=== PATIENT | male | born 2005 | race Caucasian/White ===

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

== ENCOUNTER → 2023-05-25 10:27 | Outpatient (CLI) | payer BC, SELFPAY ==
[2023-05-25 13:26] LABS: 3Hr Motility Quality Rapid Progression (Mod-Rapid); 3Hr Sperm Motility 80 % (50-60); Motility Quality Rapid Progression (Mod-Rapid); PH,Semen 8.5 (7.3-8.3); Semen Viscosity Normal (Normal); Sperm Count 89 mil/mm3 (20-160); Sperm Morphology N (Normal); Sperm Motility 100 % (50-90); WBCs,Semen Trace
== END ==
PROVIDERS: PCP Nurse Practitioner; Visit Provider Nurse Practitioner Obstetrics & Gynecology
DX: N46.9 Male infertility, unspecified (principal)
CPT/HCPCS: 89320

== ENCOUNTER 2023-08-19 13:20 | Emergency (ER) | payer BC, SELFPAY ==
[2023-08-19 14:20] VITALS: BP 126/66; PULSE 103; RESP 20; TEMP 37.2; O2SAT 99
[2023-08-19 14:35] VITALS: BP 126/66; PULSE 103; RESP 20; TEMP 37.2; O2SAT 99
[2023-08-19 14:38] LABS: UTC Influenza A Antigen Positive (Negative); UTC Influenza B Antigen Negative (Negative)
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
== END 2023-08-19 15:13 | disposition home or self-care (01) ==
PROVIDERS: Emergency Provider Nurse Practitioner; PCP Nurse Practitioner
DX: J10.1 Influenza due to other identified influenza virus with other respiratory manifestations (principal); R50.9 Fever, unspecified; R51.9 Headache, unspecified; R05.9 Cough, unspecified; R07.0 Pain in throat; R53.83 Other fatigue; M79.18 Myalgia, other site; F17.290 Nicotine dependence, other tobacco product, uncomplicated; J45.909 Unspecified asthma, uncomplicated
CPT/HCPCS: 87804; 99204; 99212; G0463

== ENCOUNTER 2023-12-24 12:30 | Emergency (ER) | payer BC, SELFPAY ==
[2023-12-24 12:55] VITALS: BMI 21.5
--- NOTE | 2023-12-24 12:56 | XR_ITS ---
PROCEDURE INFORMATION: Exam: XR Left Wrist Exam date and time: 12/24/2023 12:50 PM Age: 18 years old Clinical indication: Injury or trauma; Fall; Blunt trauma (contusions or hematomas); Hand; Right; Additional info: Fell , pain in 1st digit TECHNIQUE: Imaging protocol: Radiologic exam of the left wrist. Views: 3 views of the left wrist provided. COMPARISON: No relevant prior studies available. FINDINGS: Bones/joints: No evidence of acute fracture or malalignment. Carpal arcs are well-maintained. Soft tissues: Unremarkable. IMPRESSION: No evidence of acute osseous abnormality in the left wrist. PROCEDURE INFORMATION: Exam: XR Left Hand Exam date and time: 12/24/2023 12:50 PM Age: 18 years old Clinical indication: Injury or trauma; Fall; Blunt trauma (contusions or hematomas); Hand; Right; Additional info: Fell , pain in 1st digit TECHNIQUE: Imaging protocol: Radiologic exam of the left hand. Views: 3 views of the left hand provided. COMPARISON: No relevant prior studies available. FINDINGS: Bones/joints: No evidence of acute fracture or malalignment. Soft tissues: Unremarkable. IMPRESSION: No evidence of acute osseous abnormality in the left hand.
[2023-12-24 13:20] VITALS: BP 115/71; PULSE 75; RESP 19; TEMP 36.9; O2SAT 99; BMI 26.4
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
[2023-12-24 14:30] VITALS: BP 115/71; PULSE 75; RESP 19; TEMP 36.9; O2SAT 99
== END 2023-12-24 14:37 | disposition home or self-care (01) ==
PROVIDERS: Emergency Provider Nurse Practitioner; PCP Nurse Practitioner
DX: S63.602A Unspecified sprain of left thumb, initial encounter (principal); M79.645 Pain in left finger(s); F17.290 Nicotine dependence, other tobacco product, uncomplicated; W01.10XA Fall on same level from slipping, tripping and stumbling with subsequent striking against unspecified object, initial encounter
CPT/HCPCS: 73130; 99212; 99214; G0463

== ENCOUNTER 2024-12-11 13:51 | Outpatient (CLI) | payer BC, SELFPAY ==
--- NOTE | 2024-12-11 13:53 | US_ITS ---
FINAL REPORT CLINICAL HISTORY: LBP, LUMP, SWELLING FINDINGS: Limited sonographic images of the left back were obtained. There is a subcutaneous hyperechoic focus at the site of the clinical abnormality measuring 2.1 x 1.0 cm favored to represent a lipoma. IMPRESSION: Favor a lipoma. Reviewed, Interpreted and Dictated by Nik Talbert MD Transcribed by Arianna Berry Authenticated and [facility]
== END 2024-12-11 23:59 | disposition home or self-care (01) ==
LOC: RAD 13:51
PROVIDERS: PCP Nurse Practitioner; Visit Provider Nurse Practitioner
DX: R22.2 Localized swelling, mass and lump, trunk (principal)
CPT/HCPCS: 76604

== ENCOUNTER 2025-01-21 09:52 | Outpatient (CLI) | payer BC, SELFPAY ==
--- OUTSIDE RECORDS SUMMARY | 2025-01-21 09:58 | XMS_ITS | Clinical Summary ---
Author Organization Healthcare Address [address] [place] [address] Care Team Providers Care Bench Assembly Inspector Name Role Phone Pcp, No Primary Care Provider Unavailabl e Allergies No known active allergies Medications montelukast (Singulair) 4 MG granulesIndicat ions:Seasonal Allergic Rhinitis Take 4 mg by mouth every night. Active albuterol 0.63 MG/3ML nebulizer solution Take 0.63 mg by nebulization every 6 (six) hours if needed for wheezing. Active Active Problems No known active problems Social History Tobacco Use Types Packs/Day Years Used Date Smoking Tobacco: Some Days Cigarettes Smokeless Tobacco: Never Tobacco Cessation:Ready to Q uit: Not Asked; Counseling Given: Not Answered Alcohol Use Standard Drinks/Week Comments Never 0 (1 standard drink = 0.6 oz pur e alcohol) Sex and Gender Information Value Date Recorded Sex Assigned at Not on file Legal Sex Male 7:32 AM EDT Gender Identity Not on file Sexual Orientation Not on file Last Filed Vital Signs Vital Sign Reading Time Taken Comments Blood Pressure 111/76 04/01/2022 8:16 AM EDT Pulse 70 04/01/2022 8:16 AM EDT Temperature - - Respiratory Rate - - Oxygen Saturation - - Inhaled Oxygen Concentration - - Weight - - Height - - Body Mass Index - - Plan of Treatment Health Maintenance Due Date Last Done Comments Dental Oral Exam 2003 Dental Prophylaxis 2003 Dental X-Ray: Full Mouth 2003 [facility]-Depression Screening 2003 [facility]-HIV Screening 2003 [facility]-Hepatitis C Screening 2003 [facility]-/Child/Adol SDOH Screenings 2003 [facility]-Hepatitis B Vaccines (3 of 3 - 3-dose series) 05/12/2004 03/17/2004, 2003 [facility]-IPV Vaccines (4 of 4 - 4-dose series) 2007 09/03/2004, 2003, 2003 HPV Vaccines (2 - Male 2-dose series) 11/15/2018 05/17/2018 [facility]- SDOH Screenings 2021 [facility]-Adult SDOH Screenings 2021 Dental X-Ray: Bitewings 04/02/2023 04/01/2022 [id number] Vaccine (3 - season) 2024 05/03/2021, 04/12/2021 [facility]-Influenza Vaccine (Season Ended) 2025 05/17/2018, 05/08/2015 [facility]-DTaP,Tdap,and Td Vaccines (7 - Td or Tdap) 05/17/2028 05/17/2018, 03/04/2015, 08/21/2007, Additional history exists [facility]-Zoster Vaccines (1 of 2) 2053 08/31/2007, 09/03/2004 [facility]-Hepatitis A Vaccines Completed 08/31/2007, 08/14 [facility]-Varicella Vaccines Completed 08/31/2007, 2004 [facility]-HIB Vaccines Aged Out No longer e ligible based on patient's age to complete this topic [facility]-Pneumococcal Vaccine: Pediatrics (0 to 5 Years) and At-Risk Patients (6 to 49 Years) Aged Out No longer eligible based on patient's age to complete this topic [facility]-Rotavirus Vaccines Aged Out No lo nger eligible based on patient's age to complete this topic Procedures Procedure Name Priority Date/Time Associated Diagnosis Comments 19 BITEWING - SINGLE RADIOGRAPHIC IMAGE Routine 04/01/2022 7:45 AM EDT Dental caries from Last 3 Months or Most Recently Relevant to Health Maintenance Insurance [employer] Care Teams Bench Assembly Inspector Relationship Specialty Start Date End Date Arlene Holden [address] [place] [address] PCP - General Family Medicine 04/01/22
--- OUTSIDE RECORDS SUMMARY | 2025-01-21 09:58 | XMS_ITS | Data Portability ---
Author Organization [employer] [place] [facility] Address [address] [place] [address] Assessment No assessment recorded. Plan of Treatment Reminders Order Date Submit Date Provider Last Modified By Organization Details Last Modified Time Details Appointments None recorded. Lab HbA1c (hemoglobin A1c), blood 2023 024 [employer] [facility], [address], [place], [address], 4 08:24:53 vitamin D, 25-hydroxy, total, serum 2023 024 [facility], [address], [place], [address], 4 08:24:53 lipid panel, serum 2023 024 [facility], [address], [place], [address], 4 08:24:51 iron + TIBC + ferritin, serum 2023 024 [facility], [address], [place], [address], 4 08:24:50 CMP, serum or plasma 2023 024 [facility] [facility], [address], [place], [address], 4 08:24:51 CBC w/ auto diff 2023 024 [facility], [address], [place], [address], 4 08:24:52 TSH, serum or plasma 2023 024 [facility], [address], [place], [address], 4 08:24:52 rapid strep group A, throat [address], [address] [place] [address], [place], [address], 3 10:33:59 Referral sap 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 Surgeries None recorded. Imaging US, lower back - first available appt 2024 025 [facility] ([facility] [address], [place], [address], 5 16:20:09 Medication Orders albuterol sulfate HFA 90 mcg/actuati on aerosol inhaler 2023 024 [id number], [address] [place], [address], 4 13:53:34 ipratropium 0.5 mg-albutero l 3 mg (2.5 mg base)/3 mL nebulizatio n soln 2023 024 [id number], [address] [place], [address], 4 13:53:38 montelukast 10 mg tablet 2023 024 [facility], [address] [place] [address], [address], 4 15:27:43 albuterol sulfate HFA 90 mcg/actuati on aerosol inhaler 2023 024 [facility], [address] [place] [address], [address], 4 15:27:44 ipratropium 20 mcg-albuter ol 100 mcg/actuati on mist for inhalation 2023 024 [email or web address] [facility], [address] [place] [address], [address], 4 13:53:51 amoxicillin 875 mg tablet 2022 023 [email or web address] 1 [facility], [address] [place] [address], [address], 4 16:54:39 Patient TargetsNo targets recorded. Patient InstructionsNo instructions recorded. 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 for Aller gic rhinitis first available - same day as Kristy Lopez Referring Physician: Rena Monge, Family Medicine, Encounter Date: 03/25/2024 Results Created Date Observation Date Name Description Value Unit Range Abnormal Flag Note LastModifiedBy Organization Detail LastModifiedTime 07/01/20 23 07/01/2023 rapid strep group A, throa t Strep positi ve Not Available [address], [address], 07/01/2023 10:00:11 02/06/20 24 02/07/2024 IRON, TIBC AND AMINATA TIN PANEL iron, total 73 mcg/d L 50-195 normal Not Available [facility] [place] [facility] [address] [facility], [place], [address], 02/07/2024 08:24:50 02/06/20 24 02/07/2024 IRON, TIBC AND AMINATA TIN PANEL iron binding capacity 284 mcg/d L_(ca lc) 250-42 5 normal Not Available [facility] [address] [facility] [place], [address], 02/07/2024 08:24:50 02/06/20 24 02/07/2024 IRON, TIBC AND AMINATA TIN PANEL % saturation 26 %_(ca lc) 20-48 normal Not Available [facility] [place] [facility] [address] [place] [address], [address], 02/07/2024 08:24:50 02/06/20 24 02/07/2024 IRON, TIBC AND AMINATA TIN PANEL ferritin 100 NG/mL 38-380 normal Not Available [facility] [address] [place] [address], [address], 02/07/2024 08:24:50 02/06/20 24 02/07/2024 LIPID PANEL , STAND BALJIT cholesterol, total 107 mg/dL <200 normal Not Available [facility] [place] [facility] [address] [facility] [place], [address], 02/07/2024 08:24:51 02/06/20 24 02/07/2024 LIPID PANEL , STAND BALJIT HDL cholesterol 48 mg/dL > or = 40 normal Not Available [facility] [address] [place] [place], [address], 02/07/2024 08:24:51 02/06/20 24 02/07/2024 LIPID PANEL , STAND BALJIT triglyceride s 54 mg/dL <150 normal Not Available [facility] [address] [facility] [place], [address], 02/07/2024 08:24:51 02/06/20 24 02/07/2024 LIPID PANEL , STAND BALJIT LDL-choleste rol 46 mg/dL _(navin c) normal Refer ence range : <100 Anup able range <100 mg/dL for prima ry preve ntion ; <70 mg/dL for patie nts with CHD or diabe tic patie nts with > or = 2 CHD risk facto rs. LDL-C is now calcu lated using the Jaz n-Hop kins calcu rubycruz n, which is a valid ated novel metho d provi ding jamel r accur acy than the Fried chong equat ion in the estim ation of LDL-C . Jaz n SS et al. SARAH. 2013; 310(1 9): 2061- 2068 (http ://ed ucati on.Qu ExecNote. Wink/f aq/FA Q164) Not Available [facility] [place] [facility] [address] [facility], [place], [address], 02/07/2024 08:24:51 02/06/20 24 02/07/2024 LIPID PANEL , STAND BALJIT chol/HDLC ratio 2.2 (calc ) <5.0 normal Not Available [facility] [place] [facility] [address], [place], [address], 02/07/2024 08:24:51 02/06/20 24 02/07/2024 LIPID PANEL , STAND BALJIT non HDL cholesterol 59 mg/dL _(navin c) <130 normal For patie nts with diabe jasmyne plus 1 major ASCVD risk facto r, treat ing to a non-H DL-C goal of <100 mg/dL (LDL- C of <70 mg/dL ) is consi dered a thera peuti c optio n. Not Available [facility] [place] [facility] [address], [place], [address], 02/07/2024 08:24:51 02/06/20 24 02/07/2024 COMPR EHENS LIO METAB OLIC PANEL glucose 87 mg/dL 65-99 normal Fasti ng refer ence inter ede Not Available [facility] [place] [facility] [address] [place], [address], 02/07/2024 08:24:51 02/06/20 24 02/07/2024 COMPR EHENS LIO METAB OLIC PANEL urea nitrogen (BUN) 10 mg/dL 7-25 normal Not Available [facility] [address] [place], [address], 02/07/2024 08:24:51 02/06/20 24 02/07/2024 COMPR EHENS LIO METAB OLIC PANEL creatinine 1.13 mg/dL 0.60-1 .24 normal Not Available [facility] [address] [place], [address], 02/07/2024 08:24:51 02/06/20 24 02/07/2024 COMPR EHENS LIO METAB OLIC PANEL eGFR 95 mL/mi n/1.7 3m2 > or = 60 normal Not Available [facility] [address] [place], [address], 02/07/2024 08:24:51 02/06/20 24 02/07/2024 COMPR EHENS LIO METAB OLIC PANEL BUN/creatini ne ratio SEE NOTE: (calc ) 6-22 Not Repor henri: BUN and Creat inine are withi n refer ence range . Not Available [facility] [address] [place], [address], 02/07/2024 08:24:51 02/06/20 24 02/07/2024 COMPR EHENS LIO METAB OLIC PANEL sodium 141 mmol/ L 135-14 6 normal Not Available [facility] [address] [place], [address], 02/07/2024 08:24:51 02/06/20 24 02/07/2024 COMPR EHENS LIO METAB OLIC PANEL potassium 4.4 mmol/ L 3.5-5. 3 normal Not Available [facility] [address], [place], [address], 02/07/2024 08:24:51 02/06/20 24 02/07/2024 COMPR EHENS LIO METAB OLIC PANEL chloride 104 mmol/ L 98-110 normal Not Available [facility] [address] [place], [address], 02/07/2024 08:24:51 02/06/20 24 02/07/2024 COMPR EHENS LIO METAB OLIC PANEL carbon dioxide 29 mmol/ L 20-32 normal Not Available [facility] [address] [place], [address], 02/07/2024 08:24:51 02/06/20 24 02/07/2024 COMPR EHENS LIO METAB OLIC PANEL calcium 9.7 mg/dL 8.6-10 .3 normal Not Available [facility] [address] [place], [address], 02/07/2024 08:24:51 02/06/20 24 02/07/2024 COMPR EHENS LIO METAB OLIC PANEL protein, total 7.2 g/dL 6.1-8. 1 normal Not Available [facility] [address] [facility] [place], [address], 02/07/2024 08:24:51 02/06/20 24 02/07/2024 COMPR EHENS LIO METAB OLIC PANEL albumin 4.9 g/dL 3.6-5. 1 normal Not Available [facility] [address] [place], [address], 02/07/2024 08:24:51 02/06/20 24 02/07/2024 COMPR EHENS LIO METAB OLIC PANEL globulin 2.3 g/dL_ (calc ) 1.9-3. 7 normal Not Available [facility] [address] [place], [address], 02/07/2024 08:24:51 02/06/20 24 02/07/2024 COMPR EHENS LIO METAB OLIC PANEL albumin/glob ulin ratio 2.1 (calc ) 1.0-2. 5 normal Not Available [facility] [address] [place], [address], 02/07/2024 08:24:51 02/06/20 24 02/07/2024 COMPR EHENS LIO METAB OLIC PANEL bilirubin, total 1.4 mg/dL 0.2-1. 2 high Not Available [facility] [address] [facility] [place], [address], 02/07/2024 08:24:51 02/06/20 24 02/07/2024 COMPR EHENS LIO METAB OLIC PANEL alkaline phosphatase 70 U/L 36-130 normal Not Available [facility] [employer] [facility] [address] [place], [address], 02/07/2024 08:24:51 02/06/20 24 02/07/2024 COMPR EHENS LIO METAB OLIC PANEL AST 15 U/L 10-40 normal Not Available [facility] [address] [facility] [place], [address], 02/07/2024 08:24:51 02/06/20 24 02/07/2024 COMPR EHENS LIO METAB OLIC PANEL ALT 11 U/L 9-46 normal Not Available [facility] [address] [facility] [place], [address], 02/07/2024 08:24:51 02/06/20 24 02/07/2024 CBC (INCL UDES DIFF/ PLT) white blood cell count 6.0 thous and/u L 3.8-10 .8 normal Not Available [facility] [address] [place] [place], [address], 02/07/2024 08:24:52 02/06/20 24 02/07/2024 CBC (INCL UDES DIFF/ PLT) red blood cell count 5.11 gonzalo on/uL 4.20-5 .80 normal Not Available [facility] [address] [facility] [place], [address], 02/07/2024 08:24:52 02/06/20 24 02/07/2024 CBC (INCL UDES DIFF/ PLT) hemoglobin 14.8 g/dL 13.2-1 7.1 normal Not Available [facility] [address] [place] [place], [address], 02/07/2024 08:24:52 02/06/20 24 02/07/2024 CBC (INCL UDES DIFF/ PLT) hematocrit 44.2 % 38.5-5 0.0 normal Not Available [facility] [address] [place], [address], 02/07/2024 08:24:52 02/06/20 24 02/07/2024 CBC (INCL UDES DIFF/ PLT) MCV 86.5 fL 80.0-1 00.0 normal Not Available [facility] [address] [place] [place], [address], 02/07/2024 08:24:52 02/06/20 24 02/07/2024 CBC (INCL UDES DIFF/ PLT) MCH 29.0 pg 27.0-3 3.0 normal Not Available [facility] [address] [place] [place], [address], 02/07/2024 08:24:52 02/06/20 24 02/07/2024 CBC (INCL UDES DIFF/ PLT) MCHC 33.5 g/dL 32.0-3 6.0 normal Not Available [facility] [address] [place] [place], [address], 02/07/2024 08:24:52 02/06/20 24 02/07/2024 CBC (INCL UDES DIFF/ PLT) RDW 13.1 % 11.0-1 5.0 normal Not Available [facility] [place] [facility] [address], [place], [address], 02/07/2024 08:24:52 02/06/20 24 02/07/2024 CBC (INCL UDES DIFF/ PLT) platelet count 256 thous and/u L 140-40 0 normal Not Available [facility] [place] [facility] [address], [place], [address], 02/07/2024 08:24:52 02/06/20 24 02/07/2024 CBC (INCL UDES DIFF/ PLT) MPV 9.7 fL 7.5-12 .5 normal Not Available [facility] [place] [facility] [address] [facility], [place], [address], 02/07/2024 08:24:52 02/06/20 24 02/07/2024 CBC (INCL UDES DIFF/ PLT) absolute neutrophils 3258 cells /uL 1500-7 800 normal Not Available [facility] [place] [facility] [address], [place], [address], 02/07/2024 08:24:52 02/06/20 24 02/07/2024 CBC (INCL UDES DIFF/ PLT) absolute lymphocytes 1932 cells /uL 850-39 00 normal Not Available [facility] [place] [facility] [address], [place], [address], 02/07/2024 08:24:52 02/06/20 24 02/07/2024 CBC (INCL UDES DIFF/ PLT) absolute monocytes 522 cells /uL 200-95 0 normal Not Available [facility] [place] [facility] [address], [place], [address], 02/07/2024 08:24:52 02/06/20 24 02/07/2024 CBC (INCL UDES DIFF/ PLT) absolute eosinophils 240 cells /uL 15-500 normal Not Available [facility] [place] [facility] [address], [place], [address], 02/07/2024 08:24:52 02/06/20 24 02/07/2024 CBC (INCL UDES DIFF/ PLT) absolute basophils 48 cells /uL 0-200 normal Not Available [facility] [place] [facility] [address], [place], [address], 02/07/2024 08:24:52 02/06/20 24 02/07/2024 CBC (INCL UDES DIFF/ PLT) neutrophils 54.3 % normal Not Available [facility] [place] [facility] [address], [place], [address], 02/07/2024 08:24:52 02/06/20 24 02/07/2024 CBC (INCL UDES DIFF/ PLT) lymphocytes 32.2 % normal Not Available [facility] [place] [facility] [address], [place], [address], 02/07/2024 08:24:52 02/06/20 24 02/07/2024 CBC (INCL UDES DIFF/ PLT) monocytes 8.7 % normal Not Available [facility] [place] [facility] [address], [place], [address], 02/07/2024 08:24:52 02/06/20 24 02/07/2024 CBC (INCL UDES DIFF/ PLT) eosinophils 4.0 % normal Not Available [facility] [place] [facility] [address], [place], [address], 02/07/2024 08:24:52 02/06/20 24 02/07/2024 CBC (INCL UDES DIFF/ PLT) basophils 0.8 % normal Not Available [facility] [place] [facility] [address], [place], [address], 02/07/2024 08:24:52 02/06/20 24 02/07/2024 TSH W/REF LENO TO FT4 TSH w/reflex to FT4 1.53 mIU/L 0.40-4 .50 normal Not Available [facility] [place] [facility] [address] [facility], [place], [address], 02/07/2024 08:24:52 02/06/20 24 02/07/2024 VITAM IN D,25- OH,TO IGNACIA,I A vitamin D,25-oh,tota l,ia 36 NG/mL 30-100 normal Vitam in D Statu s 25-OH Vitam in D: Defic iency : <20 ng/mL Insuf ficie ncy: 20 - 29 ng/mL Optim al: > or = 30 ng/mL For 25-OH Vitam in D testi ng on patie nts on D2-humphrey pplem entat ion and patie nts for whom quant itati on of D2 and D3 fract ions is requi red, the [facility] Ass[facility] eD(TM ) 25-OH VIT D, (D2,D 3), LC/MS /MS is recom ngozi d: order code 42934 (juan ents >2yrs ). See Note 1 Note 1 For addit ional infor ciera jauregui refer to http: //shivam Marie stDia gnost ics.c om/fa q/FAQ 199 (This link is being provi ded for infor alan cameron/ lakeisha tijerina purpo ses only. ) Not Available [facility] [place] [facility] [address] [facility], [place], [address], 02/07/2024 08:24:53 02/06/20 24 02/07/2024 HEMOG LOBIN A1C hemoglobin A1C 5.1 %_of_ total _HGB <5.7 normal For the purpo se of screronald zayasg for the prese nce of diabe jasmyne: <5.7% Consi stent with the absen ce of diabe jasmyne 5.7-6 .4% Consi stent with incre ased risk for diabe jasmyne (pred iabet es) > or =6.5% Consi stent with diabe jasmyne This assay resul t is consi stent with a decre ased risk of diabe jasmyne. Curre ntly, no conse nsus exist s regar javi use of hemog lobin A1c for diagn osis of diabe jasmyne in child debbie. Accor ding to Ameri can Diabe jasmyne Assoc iatio n (ADA) guide lines , hemog lobin A1c <7.0% repre sents optim al contr ol in non-p regna nt diabe tic patie nts. Diffe rent metri cs may apply to speci fic patie nt popul ation s. Stand ards of Medic al Care in Diabe jasmyne(A DA). This test was perfo rmed on the [employer] amilcar c503 platf orm. Effec tive 4, a holguin e in test platf orms from the Abbot t Archi tect to the David amilcar c503 may have shift ed HbA1c resul ts nolberto red to histo rical resul ts. Based on labor atory valid ation testi ng condu cted at [facility] , the David platf orm relat lio to the Gema platf orm had an avera ge incre ase in HbA1c value of < or = 0.3%. This diffe rence is withi n accep henri varia bilit y estab lishe d by the Natio nal Glyco hemog lobin Stand ardiz ation Progr am. Note that not all indiv idual s will have had a shift in their resul ts and direc t nolberto rison s betwe en histo rical and curre nt resul ts for testi ng condu cted on diffe rent platf orms is not recom ngozi d. Not Available [facility] [place] [facility] [address] [facility], [place], [address], 02/07/2024 08:24:53 12/24/19 24 12/24/2023 XR, hand, 2 view No observ ation record ed. [facility] [address], [place], [address], 01/01/2024 15:02:33 12/12/19 25 12/11/2024 US, lower back No observ ation record ed. [email or web address] [facility] [address], [place], [address], 12/16/2024 09:50:17 Result Notes None recorded. Problems Name Problem SNOMED Code Status Onset Date Resolution Date Notes Provider Name and Address Organization Details Recorded Time Acute sinusiti s 92802177 Active 2022 Problem Code: J01.90; Problem Code Type: ICD-10; DALILA FREEMAN[address], [address] , [employer] 3 08:51:37 Generali zed anxiety disorder 37543887 Active 2020 Problem Code: F41.1; Problem Code Type: ICD-10; Not Available [facility] 2 21:26:30 Acute maxillar y sinusiti s 99183500 Completed 201709/14/2018 Problem Code: J01.00; Problem Code Type: ICD-10; Not Available [facility] 2 21:26:30 Acute frontal sinusiti s 18787875 Completed 201912/25/2020 Problem Code: J01.10; Problem Code Type: ICD-10; Not Available [facility] 2 21:26:30 Acute sinusiti s 35665036 Completed 202105/12/2022 Problem Code: J01.90; Problem Code Type: ICD-10; PRAKASH FREEMAN [address] [place] [address], [address] , [employer] 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 2 09:28:46 Disorder of upper respirat ory system 519421845 Completed 201706/13/2018 Problem Code: J06.9; Problem Code Type: ICD-10; Not Available [facility] 2 21:26:31 Mild persiste nt asthma 334204448 Active 2016 Not Available [facility] 2 21:26:31 Adolesce nt idiopath ic scoliosi s 249215508 Active 2020 Problem Code: M41.129; Problem Code Type: ICD-10; Not Available [facility] 2 21:26:31 Migraine with aura 9100261 Completed 201612/29/2017 Problem Code: G43.109; Problem Code Type: ICD-10; Not Available [facility] 2 21:26:31 Mannie hematuri a 548788742 Completed 201805/12/2022 Problem Code: R31.0; Problem Code Type: ICD-10; 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 2 09:28:46 Impacted cerumen of bilatera l ears [id number] 33948 Completed 201702/27/2018 Problem Code: H61.23; Problem Code Type: ICD-10; Not Available [facility] 2 21:26:31 Subluxat ion of joint of lumbar spine 833308288 Completed 201712/29/2017 Problem Code: S33.130A ; Problem Code Type: ICD-10; Not Available [facility] 2 21:26:31 Well child 813965576 Completed 201812/25/2020 Not Available [facility] 2 21:26:31 Acute sinusiti s 88001090 Completed 202001/21/2021 Problem Code: J01.90; Problem Code Type: ICD-10; DALILA FREEMAN-[address], [address] , [employer] 3 08:51:38 Body mass index 25-29 - overweig ht 505649324 Completed 202005/12/2022 Problem Code: Z68.27; Problem Code Type: ICD-10; SHY watters, [employer] 09:28:46 Childhoo d obesity 891230132 Completed 201912/25/2020 Problem Code: Z68.54; Problem Code Type: ICD-10; Not Available [facility] 21:26:32 Body mass index 30+ - obesity 136477705 Completed 202105/12/2022 Problem Code: Z68.30; Problem Code Type: ICD-10; SHY watters, [employer]. 09:28:46 Atopic neuroder matitis 819205699 Completed 201612/29/2017 Problem Code: L20.81; Problem Code Type: ICD-10; Not Available [facility] 21:26:32 Childhoo d obesity 820596913 Completed 201712/25/2020 Problem Code: Z68.54; Problem Code Type: ICD-10; Not Available [facility] 21:26:32 Impacted cerumen 99760680 Completed 201702/27/2018 Problem Code: 380.4; Problem Code Type: ICD-9; Not Available [facility] 21:26:33 Epistaxi s Completed 202105/12/2022 SHYCLARISSA watters, [employer] 2 09:28:46 Pyrexia of unknown origin 4701688 Completed 201905/12/2022 Problem Code: R50.9; Problem Code Type: ICD-10; SHY watters, [employer] 09:28:46 Atopic dermatit is 96333221 Completed 201612/29/2017 Problem Code: 691.8; Problem Code Type: ICD-9; Not Available [facility] 21:26:33 Acute upper respirat ory infectio n of multiple sites Completed 201706/13/2018 Problem Code: 465.8; Problem Code Type: ICD-9; Not Available [facility] 21:26:34 Extrinsi c asthma with asthma attack Completed 201612/25/2020 Problem Code: 493.02; Problem Code Type: ICD-9; Not Available [facility] 21:26:34 Lumbar sprain 182756167 Completed 201712/29/2017 Problem Code: 847.2; Problem Code Type: ICD-9; Not Available [facility] 21:26:34 Problem Notes None recorded. Procedures Surgical History Date Name Laterality Status Provider Name and Address Organization Details Recorded Time [facility]end[facility] completed [facility] 14:02:36 Imaging Results None recorded. Procedure Notes None recorded. Medical Equipment None Reported. Allergies No known drug allergies Medications Name Sig Start Date Stop Date Status Note LastModified by Organization Details LastModified Time amoxicillin 500 mg capsule Take 1 capsule every 8 hours by oral route for 7 days. 07/01 completed Not Available Not Available Not Available Augmentin 875 mg-125 mg tablet Take 1 tablet(s) by mouth q12h for 10 days 08/25 completed Not Available Not Available Not Available ipratropium 0.5 mg-albutero l 3 mg (2.5 mg base)/3 mL nebulizatio n soln INHALE 3 ML BY NEBULIZAT ION 4 TIMES A DAY NEEDED active Not Available Not Available No t Available cetirizine 10 mg tablet Take 1 tablet(s) by mouth at bedtime. 02/22 completed Not Available Not Available Not Available Topamax 25 mg tablet Take 1 tablet(s) by mouth bid 10/31 completed Not Available Not Available Not Available azithromyci n 250 mg tablet take 2 tablets (500 mg) by oral route once daily for 1 day then 1 tablet (250 mg) by oral route once daily for 4 days 01/06 completed Not Available Not Available Not Available tizanidine 4 mg tablet 1 po q hs 12/30 completed Not Available Not Available Not Available sumatriptan 100 mg tablet 1 tablet PO for migraine, may repeat in 2 hours if needed. 03/05 completed Not Available Not Available Not Available hydrocodone 5 mg-acetamin ophen 325 mg tablet TAKE 1 TABLET BY MOUTH EVERY 6 HOURS NEEDED FOR POST-OP PAIN 12/20 completed Not Available Not Available Not Available prednisone 20 mg tablet Take 1 tablet 3 times a day by mouth for 3 days. 02/08 completed Not Available Not Available Not Available clindamycin HCl 150 mg capsule TAKE 2 CAPSULES BY MOUTH NOW THEN 1 CAPSULE 4 TIMES A DAY UNTIL GONE 05/12 completed Not Available Not Available Not Available prochlorper azine maleate 10 mg tablet TAKE 1 TABLET BY MOUTH EVERY 4 TO 6 HOURS NEEDED 05/12 completed Not Available Not Available Not Available triamcinolo ne acetonide 0.1 % topical cream Apply thin film to affected area tid 10/05 completed Not Available Not Available Not Available amoxicillin 500 mg tablet take 1 tablet (500 mg) by oral route every 12 hours for 10 days 12/25 completed Not Available Not Available Not Available ondansetron 8 mg disintegrat ing tablet 05/12 completed Not Available Not Available Not Available Depo-Medrol 80 mg/mL suspension for injection Take 1 mL by injection route. 12/20 completed Not Available Not Available Not Available prednisone 10 mg tablets in a dose pack Take 1 dose pk by oral route. 07/01 completed Not Available Not Available Not Available oxycodone-a cetaminophe n 5 mg-325 mg tablet 05/12 completed Not Available Not Available Not Available amoxicillin 875 mg tablet TAKE ONE TABLET BY MOUTH EVERY TWELVE HOURS 08/22 completed Not Available Not Available Not Available tamsulosin 0.4 mg capsule TAKE 1 CAPSULE BY ORAL ROUTE ONCE DAILY 1/2 HOUR FOLLOWING THE SAME MEAL EACH DAY 05/12 completed Not Available Not Available Not Available cephalexin 500 mg capsule Take 1 capsule twice a day by mouth for 7 days. 02/08 completed Not Available Not Available Not Available oseltamivir 75 mg capsule 02/05 completed Not Available Not Available Not Available Singulair 5 mg chewable tablet Chew 1 tablet(s) by mouth each evening 10/25 completed Not Available Not Available Not Available fluoxetine 10 mg capsule take 1 capsule (10 mg) by oral route once daily 11/08 completed Not Available Not Available Not Available montelukast 10 mg tablet TAKE 1 TABLET BY MOUTH EVERY DAY 2024 active Not Available Not Available Not Avai lable azelastine 137 mcg (0.1 %) nasal spray 1 SPRAY INTO BOTH NOSTRILS EVERY EVENING active Not Available Not Available No t Available epinephrine 0.3 mg/0.3 mL injection, auto-inject or INJECT INTO OUTER THIGH FOR SEVERE ALLERGIC REACTION. CALL 911 AFTER USE. active Not Available Not Available No t Available oxycodone-a cetaminophe n 7.5 mg-325 mg tablet TAKE 1 TABLET BY MOUTH EVERY 6 HOURS NEEDED 05/12 completed Not Available Not Available Not Available albuterol sulfate HFA 90 mcg/actuati on aerosol inhaler INHALE 2 PUFFS TWICE A DAY NEEDED 2024 active Not Available Not Available Not Avai lable sertraline 50 mg tablet TAKE 1 TABLET BY MOUTH EVERY DAY 02/05 completed Not Available Not Available Not Available naproxen 500 mg tablet TAKE 1 TABLET BY MOUTH TWICE A DAY 05/12 completed Not Available Not Available Not Available amoxicillin 500 mg-potassiu m clavulanate 125 mg tablet TAKE 1 TABLET BY MOUTH 3 TIMES A DAY FOR 5 DAYS 12/20 completed Not Available Not Available Not Available hydroxyzine pamoate 25 mg capsule take 1 capsule (25 mg) by oral route every 8 hours prn panic attack 01/23 completed Not Available Not Available Not Available Denta 5000 Plus 1.1 % cream USE ONCE DAILY IN PLACE OF REGULAR TOOTHPAST E 02/08 completed Not Available Not Available Not Available nitrofurant oin monohydrate /macrocryst als 100 mg capsule TAKE 1 CAPSULE BY MOUTH EVERY 12 HOURS FOR 10 DAYS 05/12 completed Not Available Not Available Not Available desvenlafax ine succinate ER 50 mg tablet,exte nded release 24 hr TAKE 1 TABLET BY MOUTH EVERY DAY 02/05 completed Not Available Not Available Not Available desvenlafax ine succinate ER 100 mg tablet,exte nded release 24 hr TAKE 1 TABLET BY MOUTH EVERY DAY active Not Available Not Available No t Available Combivent Respimat 20 mcg-100 mcg/actuati on solution for inhalation INHALE 1 PUFF BY MOUTH EVERY 4 HOURS NEEDED 2023 active Not Available Not Available Not Avai lable Viberzi 100 mg tablet TAKE 1 TABLET BY MOUTH TWICE A DAY 02/08 completed Not Available Not Available Not Available Plenvu 140 gram-9 gram-5.2 gram powder packs TAKE DIRECTED PER INSTRUCTI ONS GIVEN TO YOU FOR YOUR COLONOSCO PY - SEE COUPON CODE 12/20 completed Not Available Not Available Not Available [facility] COVID-19 Antigen Rapid Home Test kit 05/12 completed Not Available Not Available Not Available Vitals Date Recorded Body height Body mass index (BMI) Body mass index (BMI) Percentile per age and sex Body weight Heart rate Oxygen saturation Oxygen saturation in Arterial blood by Pulse oximetry Systolic blood pressure Diastolic blood pressure Provider Name and Address Organization Details Last Updated DateTime 4 172.72 cm 28.8 kg/m2 91 % 66391.3 6 g 92 /min 96 % 96 % 127 mm[Hg] 80 mm[Hg] Priya Holley [employer] 4 16:55:44 Date Recorded Body height Body mass index (BMI) Body weight Heart rate Oxygen saturation Oxygen saturation in Arterial blood by Pulse oximetry Systolic blood pressure Diastolic blood pressure Provider Name and Address Organization Details Last Updated DateTime 5 172.72 cm 27.4 kg/m2 87277.6 3 g 96 /min 98 % 98 % 129 mm[Hg] 85 mm[Hg] Cassandra Leary [employer] 5 13:00:24 Date Recorded Body height Body mass index (BMI) Percentile per age and sex Body mass index (BMI) Body weight Body temperature Heart rate Oxygen saturation Oxygen saturation in Arterial blood by Pulse oximetry Systolic blood pressure Diastolic blood pressure Provider Name and Address Organization Details Last Updated DateTime 4 172.72 cm 77 % 26 kg/m2 82469.5 8 g 98 [degF] 67 /min 98 % 98 % 112 mm[Hg] 64 mm[Hg] LOWELL HALEPREMA [employer] 4 08:37:42 Date Recorded Body height Body mass index (BMI) Body mass index (BMI) Percentile per age and sex Body weight Heart rate Oxygen saturation Oxygen saturation in Arterial blood by Pulse oximetry Systolic blood pressure Diastolic blood pressure Provider Name and Address Organization Details Last Updated DateTime 4 172.72 cm 26.2 kg/m2 78 % 27921.8 9 g 86 /min 98 % 98 % 117 mm[Hg] 78 mm[Hg] Priya [place] [employer] 4 13:29:01 Date Recorded Body height Body mass index (BMI) Percentile per age and sex Body mass index (BMI) Body weight Body temperature Heart rate Oxygen saturation Oxygen saturation in Arterial blood by Pulse oximetry Systolic blood pressure Diastolic blood pressure Provider Name and Address Organization Details Last Updated DateTime 3 172.72 cm 92 % 29 kg/m2 27852.1 4 g 98.3 [degF] 89 /min 97 % 97 % 116 mm[Hg] 88 mm[Hg] Priya [place] 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 No Information n ot available 12/20/2022 Is Your Home Air Conditioned? Yes Information not available 12/20/2022 Do You Wear A Helmet When Biking? No [email or web address] Information not available 02/08/2023 Are You Blind Or Do You Have Difficulty Seeing? No Information n ot available 12/20/2022 What Is Your Level Of Caffeine Consumption? Heavy Information not available 12/20/2022 Are You A Caregiver? No Information not available 02/08/2023 What Type Of Lace Roller Operator Do You Use? None [email or web address] Information not available 02/08/2023 In The 14 Days Before Symptom Onset, Have You Had Close Contact With A Laboratory-confirm ed COVID-19 While That Case Was Ill? No Information n ot available 12/20/2022 In The 14 Days Before Symptom Onset, Have You Had Close Contact With A Person Who Is Under Investigation For COVID-19 While That Person Was Ill? No Information not available 12/20/2022 Have You Been To An Area Known To Be High Risk For COVID-19? No Information not available 12/20/2022 Are You Deaf Or Do You Have Serious Difficulty Hearing? No Information not available 12/20/2022 What Type Of Diet Are You Following? REGULAR [email or web address] Information n ot available 02/08/2023 Who Is Your Employer? [employer] Information not available 12/20/2022 Have There Been Any Changes To Your Family Or Social Situation? Yes Information no t available 12/20/2022 Are There Any Guns Present In Your Home? No [email or web address] Information not available 02/08/2023 Which Of Your Hands Is Dominant? Right Information n ot available 12/20/2022 Do You Have A Medical Power Of Software Installer? No Information not available 12/20/2022 What Was The Date Of Your Most Recent Tobacco Screening? 11/26/2024 Information not available 11/26/2024 Do You Have Any Pets? No [email or web address] Information not available 02/08/2023 Do You Use Protection During Sex? Always Information not available 11/26/2024 What Is Your Relationship Status? Information not available 11/26/2024 Do You Use Your Seat Belt Or Car Seat Routinely? Yes Information not available 12/20/2022 Are You Sexually Active? Yes [email or web address] Information not available 02/08/2023 Do You Have Smoke And Carbon Monoxide Detectors In Your Home? Yes Information not available 12/20/2022 Are You Passively Exposed To Smoke? No Information no t available 12/20/2022 Are There Any Smokers In Your House? No Information not available 12/20/2022 Do You Participate In Social Media? Yes [email or web address] Information not available 02/08/2023 Do You Use Sunscreen Routinely? No [email or web address] Information not available 02/08/2023 Has Tobacco Cessation Counseling Been Provided? No Information not available 03/25/2024 On What Date Was Tobacco Cessation Counseling Provided? 11/26/2024 Information not available 11/26/2024 Have You Recently Traveled Abroad? No Information not available 12/20/2022 Do You Have Difficulty Walking Or Climbing Stairs? No Information not available 12/20/2022 Are You Currently In School? No Information not available 12/20/2022 Sex: Male Functional Status Question Answer Note LastModified by [employer] Details LastModified Time Do you use any illicit or recreational drugs? No Information not available 12/20/2022 Do you or have you ever used any other forms of tobacco or nicotine? Yes Information not available 12/20/2022 What is your level of alcohol consumption? None Information not available 12/20/2022 Do you or have you ever used smokeless tobacco? Never used smokeless tobacco Information not available 12/20/2022 Are you currently employed? Yes Information not available 12/20/2022 Do you have transportation difficulties? No Information not available 12/20/2022 Are you able to walk? [email or web address] Information not available 12/20/2022 Do you have difficulty doing errands alone? No Information not available 12/20/2022 Are you able to care for yourself? Yes Information n ot available 12/20/2022 Do you have difficulty dressing or bathing? No Information not available 12/20/2022 Do you or have you ever used e-cigarettes or vape? Current user of electronic cigarettes Information not available 12/20/2022 Mental Status Question Answer Note LastModified by [employer] Details LastModified Time Do you feel stressed (tense, restless, nervous, or anxious, or unable to sleep at night)? [id number] [email or web address] Information not available 02/08/2023 Do you have difficulty concentrating, remembering or making decisions? No Information no t available 12/20/2022 Family History Relationship Description Onset Age of this Age Resolved Age Notes LastModified by Organization Details LastModified Time Unspecified Relation Family history of Respiratory disease [email or web address] Not available 05/12 09:28:56 Maternal Grandmother Substance abuse [email or web address] Not available 05/12 09:29:16 Maternal Grandmother Bipolar disorder [email or web address] Not available 05/12 09:29:28 Father No current problems or disability [email or web address] Not available 04/15 09:29:30 Mother No current problems or disability [email or web address] Not available 04/15 09:29:30 Medical History Condition Response Allergies (Food, seasonal, environmental ) Y Hospitalizations N Emergency room visit since last appointm ent. N ADD/ADHD N Asthma Y Immunizations Vaccine Type Date Status Note Provider Nam e and Address Organization Details Recorded Time DTaP 8 completed ARIANASRIKANTH MARTINEZ [employer]unk[employer], [employer] 02/08/2023 08:39:59 DTaP 4 completed ARIANASRIKANTH MARTINEZ null, [employer] 02/08/2023 08:39:59 DTaP 4 completed ARIANA MARTINEZ null, [employer] 02/08/2023 08:39:59 DTaP 5 completed ARIANA MARTINEZ null, [employer] 02/08/2023 08:39:59 DTaP 4 completed ARIANA MARTINEZ null, [employer] 02/08/2023 08:39:59 COVID-19, mRNA, LNP-S, PF, 30 mcg/0.3 mL dose 1 completed ARIANA MARTINEZ null, [employer] 02/08/2023 08:39:58 COVID-19, mRNA, LNP-S, PF, 30 mcg/0.3 mL dose 1 completed ARIANA MARTINEZ null, [employer] 02/08/2023 08:39:58 varicella 5 completed ARIANA MARTINEZ null, [employer] 02/08/2023 08:39:58 varicella 8 completed ARIANA MARTINEZ null, [employer] 02/08/2023 08:39:58 MMR 8 completed ARIANA MARTINEZ null, [employer] 02/08/2023 08:39:58 MMR 5 completed ARIANA MARTINEZ null, [employer] 02/08/2023 08:39:58 Tdap 8 completed Not Available [facility] 04/19/2022 23:36:06 Pneumococcal conjugate PCV 13 6 completed ARIANA MARTINEZ null, [employer] 02/08/2023 08:39:58 Pneumococcal conjugate PCV 13 5 completed ARIANA MARTINEZ null, [employer] 02/08/2023 08:39:58 HPV9 8 completed Not Available [facility] 04/19/2022 23:36:06 Hib, unspecified formulation 5 completed ARIANA MARTINEZ null, [employer] 02/08/2023 08:39:58 Hib, unspecified formulation 4 completed ARIANA MARTINEZ null, [employer] 02/08/2023 08:39:58 Hib, unspecified formulation 4 completed ARIANA MARTINEZ null, [employer] 02/08/2023 08:39:58 Hib, unspecified formulation 4 completed ARIANA MARTINEZ null, [employer] 02/08/2023 08:39:58 Hep B, adult 4 completed ARIANA MARTINEZ null, [employer] 02/08/2023 08:39:58 Hep B, adult 4 completed ARIANA MARTINEZ null, [employer] 02/08/2023 08:39:58 Hep B, adult 3 completed ARIANA MARTINEZ null, [employer] 02/08/2023 08:39:59 Influenza, split virus, trivalent, preservative 8 completed ARIANA MARTINEZ null, [employer] 02/08/2023 08:39:58 meningococcal MCV4P 8 completed ARIANA MARTINEZ null, [employer] 02/08/2023 08:39:59 Hep A, adult 7 completed ARIANA MARTINEZ null, [employer] 02/08/2023 08:39:59 Hep A, adult 8 completed ARIANA MARTINEZ null, [employer] 02/08/2023 08:39:59 IPV 5 completed ARIANA MARTINEZ null, [employer] 02/08/2023 08:39:58 IPV 4 completed ARIANA MARTINEZ null, [employer] 02/08/2023 08:39:58 IPV 4 completed ARIANA MARTINEZ null, [employer] 02/08/2023 08:39:58 Influenza, live, trivalent, intranasal 3 completed ARIANA MARTINEZ null, [employer] 02/08/2023 08:39:58 pneumococcal conjugate PCV 7 6 completed AIRANA MARTINEZ null, [employer] 02/08/2023 08:39:58 pneumococcal conjugate PCV 7 5 completed ARIANA MARTINEZ null, [employer] 02/08/2023 08:39:58 Tdap 5 completed ARIANA MARTINEZ null, [employer] 02/08/2023 08:39:58 varicella 8 completed ARIANA MARTINEZ null, [employer] 02/08/2023 08:39:58 Hep B, adolescent or pediatric 4 completed ARIANA MARTINEZ null, [employer] 02/08/2023 08:39:58 Hep B, adolescent or pediatric 4 completed ARIANA MARTINEZ null, [employer] 02/08/2023 08:39:58 Hep A, ped/adol, 2 dose 7 completed ARIANA MARTINEZ null, [employer] 02/08/2023 08:39:59 Hep A, ped/adol, 2 dose 8 completed ARIANA MARTINEZ null, [employer] 02/08/2023 08:39:59 Hib (HbOC) 5 completed ARIANA MARTINEZ null, [employer] 02/08/2023 08:39:59 Hib (HbOC) 4 completed ARIANA MARTIENZ null, [employer] 02/08/2023 08:39:59 Hib (HbOC) 4 completed ARIANA MARTINEZ null, [employer] 02/08/2023 08:39:59 Hib (HbOC) 7 completed ARIANA MARTINEZ null, [employer] 02/08/2023 08:39:59 Meningococcal MCV4O 8 completed ARIANA MARTINEZ null, [employer] 02/08/2023 08:39:59 DTaP 8 completed ARIANA MARTINEZ null, [employer] 02/08/2023 08:39:59 meningococcal MCV4, unspecified formulation 5 completed ARIANA MARTINEZ null, [employer] 02/08/2023 08:39:59 Influenza, live, quadrivalent, intranasal 5 completed ARIANA MARTINEZ null, [employer] 02/08/2023 08:39:59 DTaP-Hib 5 completed ARIANA MARTINEZ null, [employer] 02/08/2023 08:39:59 Past Encounters Encounter ID Performer Location Encounter Start Date Encounter Closed Date Diagnosis/Indication Diagnosis SNOMED-CT Code Diagnosis ICD10 Code Diagnosis Note [id number] Rena Monge [place] [id number] 05/12/2022 09:25:17 05/12/2022 10:05:48 Acute sinusitis 96357244 J01.90 Vomiting 740993311 R11.1 0 [id number] [place] [address] 05/13/2022 14:21:17 05/13/2022 15:53:21 Acute sinusitis 60980205 J01.90 [id number] Rena Monge [place] [address] 12/20/2022 13:47:57 12/20/2022 14:25:33 Allergic rhinitis 11836314 J30.9 Hypoglycemia 682373419 E 16.2 Body mass index 25-29 - overweight 725768465 Z68.29 [id number] Rena Monge [place] [address] 0 12/27/2022 10:35:40 12/27/2022 11:13:13 Insect bite reaction 687472888 T63.481A Superficia l bacterial infection of skin 698675915 L03.[id number] [place] [address] [place] [address] 02/08/2023 08:25:20 02/08/2023 08:55:41 Acute sinusitis 00889204 J01.90 [id number] [place] [address] 07/01/2023 09:56:59 07/01/2023 10:41:16 Pain in throat 797320643 R07.0 Streptococ navin sore throat 38749682 J02.0 Body mass index 25-29 - overweight 891022117 Z68.29 [id number] Rena Monge [place] [address] 0 08/22/2023 16:46:49 08/22/2023 17:37:47 Mild persistent asthma 218005263 J45.30 Allergic rhinitis 248584 04 J30.9 Bilateral carpal tunnel syndrome 5525764313 3244791 G56.03 Body mass index 25-29 - overweight 836952297 Z68.29 [id number] Rena Monge [place] [address] 0 02/06/2024 08:17:09 02/06/2024 09:05:55 Fatigue 08762948 R53.83 Hyperlipidemia 86402435 E78.5 Vitamin D deficiency 347 13330 E55.9 Iron defic iency anemia 94825671 D50.9 Hyperglycemia 27276701 R 73.9 Unintentio nal weight loss 841817043 R63.4 Body mass index 25-29 - overweight 531010410 Z68.29 [id number] Rena Monge [place] [address] 0 03/25/2024 13:20:50 03/25/2024 13:59:01 Mild persistent asthma 242912696 J45.30 Allergic rhinitis 046472 04 J30.9 Body mass index 25-29 - overweight 330286767 Z68.29 Allergic r eaction to bee sting 124410208 T63.444A [id number] Rena Monge [place] [address] 0 11/26/2024 12:42:09 11/26/2024 13:12:15 Skin nodule 94827624 R22.9 Body mass index 25-29 - overweight 973390073 Z68.29 Health Concerns Section Related Observation LastModified by Organization Detai ls LastModified Time None Recorded Concern Status LastModified by Organization Details LastModified Time None Recorded Advance Directives Directive N: Payers Insurance Date Sequence Insurance Name Policy Number Policy Talley Covered Member ID Talley Member ID Guarantor Name 11/23/2024 1 MALIK (PPO) [id number] Jacob Lopez [id number] Jose Lopez Notes Date Note Type Note Provider Name and Address Organization Details Recorded Time 07/01/2023 text/html pt here today wi th c/o sore throat for almost a week. rapid strep positive. on exam, throat red and swollen. ordered abx. educated pt on new med. pt voiced understanding. increase fluids. tylenol/ibuprofen for fever/pain. return for worsening symptoms. Rena Monge APRN [address] [place], [address], [employer]. 07/01/2023 10:33:46 08/22/2023 text/html pt here today fo r medication refills. pt states hes doing well on current medication regime. pt states that he has been having trouble with his bilateral hands and wrist for a few months. pt states that they will draw up on him and has burning pain. 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 probable carpal tunnel. advised pt to get carpal tunnel braces to wear at night, NSAIDs for pain, ice PRN. if doesnt help then i will refer to ortho for further evaluation. pt also states that he has been using his rescue inhaler every couple of days he feels like he is soa. pt states that he used to have a neb machine and felt like that helped. on exam, lungs clear. i will order a neb machine. educated pt on new machine. if pt feels like he is using more i will order mait inhaler. Rena Monge APRN [address] [place], [address], [employer] 08/22/2023 17:50:40 02/06/2024 text/html Patient here wit h for complaints with unintentional weight loss over the past 5-6 months. He has lost about 20 lbs since the beginning of the year. He denies trying to lose weight and has maintained his normal lifestyle. He states he still has a normal appetite, food taste good, eats 2-4 meals daily and denies stomach pain, N/V, change in taste, difficulty swallowing, [place], back pain or dizziness.. He does state he has problems with IBS-D and was passing his pristiq with BM. Pristiq was was started in Nov., wt loss and frequent diarrhea started 2-3 months ago. Due to these symptoms he stopped taking pristiq 2months ago until IBS-D improved and has now started taking meds within the past couple of weeks. His IBS-D flares come and go and will have some normal months of BM. He does note normal BM with occasional constipation since starting meds back. Denies blood in stool. He previously went to GI doc and received meds for IBS-D but hasn't returned or gotten refills due to Dr paige bustos. Assessment WDL. I will order lab work today and have recommended pt speak with Danielle Prince regarding Pristiq and associated symptoms due to side effect of anorexia and the time of wt loss coincides with taking the medication. Pt voices understanding. Rena Monge APRN [address] [place], [address], [employer]. 02/06/2024 18:10:08 03/25/2024 text/html pt here today wi th c/o worsening allergic symptoms over the past several months. pt states that this past week he was actually stung by a wasp and his hand swelled and itched for around 5 days. he has been stung in the past and never had a reaction like this before. he had taken benadryl. it has finally gotten better. pt states that he takes his allergy med but he still has allergy symptoms and some wheezing and doesnt quite get better. he would like a referral to see an sap bods developer to see what he is allergic to, if anything. pt states that he didnt get any vials of neb treatment at pharmacy, they gave him an inhaler. looks like the inhaler was sent in and not the vials. i will d/c the inhaler today and order the vial neb treatments. 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 Rena Monge APRN [address] [place], [address], [employer] 03/25/2024 14:55:35 11/26/2024 text/html pt here today wi th c/o a nodule to left lower back, for a long time (over a year). pt states that he can feel it but not painful. states that it has never been red or swollen, no drainage. on exam, pt has around a marble sized movable deep nodule to left lower back. ordered US. Rena Monge APRN [address] [facility], [place], [address], [facility] [employer] 11/26/2024 13:35:00
[2025-01-21 10:17] VITALS: BMI 28.0
[2025-01-21 10:35] LABS: Basophils # 0.1 K/mm3 (0-0.2); Eosinophils # 0.2 Kmm3 (0.0-0.4); Eosinophils % 4.8 % (0.1-12.0); Hemoglobin 13.1 g/dL (14.1-18.0); Immature Granulocytes # 0.01 10^3uL; Immature Granulocytes % 0.2 %; Lymphocytes % 41.9 % (10-50); Mean Corpuscular HGB Conc 32.8 g/dL (31.8-35.4); Mean Corpuscular Hemoglobin 28.6 pg (27.0-31.2); Mean Corpuscular Volume 87.3 fl (80-94); Monocytes # 0.4 K/mm3 (0.1-1.0); Monocytes % 7.6 % (1.7-9.3); Neutrophils # 2.2 K/mm3 (1.8-7.8); Neutrophils % 44.5 % (37.0-80.0); Nucleated Red Blood Cells # 0 10^3/uL; Nucleated Red Blood Cells % 0 %; Platelet Count 192 K/mm3 (142-424); Red Blood Count 4.58 M/mm3 (4.60-6.20); Red Cell Distribution Width 13.6 % (11.5-17.5); Red Cell Distribution Width-SD 43.4 fL; White Blood Count 4.8 K/mm3 (4.8-10.8)
[2025-01-21 10:45] LABS: Blood Urea Nitrogen 7 mg/dl (9-20); Carbon Dioxide 28 mmol/L (22.0-30.0); Chloride 105 mmol/L (98-107); Creatinine Clearance Estimated 130 mL/min (50-200); Estimated Glomerular Filt Rate 94 ml/min (>60); GFR (African American) 114 ML/MIN (>60); Glucose 112 mg/dl (74-100); Sodium 138 mmol/L (136-145)
== END 2025-01-21 23:59 | disposition home or self-care (01) ==
LOC: PREOP 09:53
PROVIDERS: PCP Nurse Practitioner; Visit Provider Surgery
DX: Z01.812 Encounter for preprocedural laboratory examination (principal)
CPT/HCPCS: 80048; 85025